=== PATIENT | female | born 1990 | race Asian ===

== ENCOUNTER 2024-08-11 14:12 | Emergency (ER) | payer OTHER ==
[~2024-08-11] VITALS: Ht 170.2 cm; Wt 83.6 kg
[2024-08-11] MEDS ORDERED: OLOP2.5D3 OP (18:04)
[2024-08-11] MEDS ORDERED: ERYT5OIN25 OP (18:04)
[2024-08-11 18:11] VITALS: BP 130/73; TEMP 97.7; O2SAT 98
[2024-08-12] MEDS ORDERED: OCUF0.25 OP (22:31)
[2024-08-12] MEDS ORDERED: MEDR4PAK PO (22:31)
== END 2024-08-11 18:13 | disposition home or self-care (01) ==
LOC: M ED 14:12
DX: H10.33 Unspecified acute conjunctivitis, bilateral (principal)

== ENCOUNTER 2024-08-12 20:22 | Emergency (ER) | payer OTHER ==
[~2024-08-12] VITALS: Ht 160 cm; Wt 83.6 kg
[~2024-08-12 20:22] MED LIST: ERYT5OIN25 OP; OLOP2.5D3 OP
[2024-08-12 20:26] VITALS: TEMP 97.8
[2024-08-12] MEDS: IBUPROFEN 800 MG TAB PO ONE (20:55)
[2024-08-12] MEDS: FLUORESCEIN OPHTH 1MG STRIP OU ONE (21:35)
[2024-08-12] MEDS: PROPARACAINE 0.5% OPHTH SOL 15ML OU ONE (21:35)
[2024-08-12] MEDS: predniSONE 20 MG TAB PO ONE (22:30)
[2024-08-12] MEDS ORDERED: OCUF0.25 OP (22:31)
[2024-08-12] MEDS ORDERED: MEDR4PAK PO (22:31)
[2024-08-12 22:41] VITALS: BP 128/76; O2SAT 98
== END 2024-08-12 22:42 | disposition home or self-care (01) ==
LOC: M ED 20:22
DX: H10.9 Unspecified conjunctivitis (principal)
CPT/HCPCS: 99283; J7512